=== PATIENT | female | born 1945 | race Caucasian/White ===

== ENCOUNTER 2016-08-09 14:53 | Outpatient (CLI) | payer MEDICARE, BC, OTHER | END 2016-08-09 14:54 | disposition home or self-care (01) | DX: M51.36 Other intervertebral disc degeneration, lumbar region (principal); M47.816 Spondylosis without myelopathy or radiculopathy, lumbar region; M48.54XD Collapsed vertebra, not elsewhere classified, thoracic region, subsequent encounter for fracture with routine healing; M51.34 Other intervertebral disc degeneration, thoracic region; M40.14 Other secondary kyphosis, thoracic region ==

== ENCOUNTER 2016-10-03 09:34 | Outpatient (CLI) | payer MEDICARE, BC, OTHER | END 2016-10-03 09:35 | disposition home or self-care (01) | DX: E78.5 Hyperlipidemia, unspecified (principal) ==

== ENCOUNTER 2017-02-10 13:33 | Emergency (ER) | payer MEDICARE, BC, OTHER ==
--- NOTE | 2017-02-10 13:48 | ED Physician Documentation ---
PD HPI UPPER EXT INJURY - Stated complaint Stated Complaint: R SHOULDER PX - Chief complaint Chief Complaint: Ext Problem - History obtained from History obtained from: Patient - History of Present Illness Location: Right, Shoulder (was opening a window that was firm to move, pulling it up from waist height, and felt onse tof pop and pain in right anterior shoulder. Pain with ROM of the shoulder. Does not feel pain with flexion of the elbow. Guarding motion of the shoulder. Has had some arthritis of the shoulder and pain with abduction and rotational movement at times in the past, not recent.) Where injury occurred: Home Timing - onset: Today Timing - duration: Hours Timing - details: Abrupt onset, Still present Improved by: Rest Worsened by: Moving Associated symptoms: Weakness (of arm for lifting it due to pain.). No: Numbness Contributing factors: Anticoagulated (on Plavix s/p heart stent few years ago). No: Prior ortho surgery Similar symptoms before: Has not had sx before Recently seen: Not recently seen Review of Systems GI: denies: Nausea, Vomiting Neurologic: denies: Focal weakness (arm hurts with rotational movement and abduction so less strong, but does not feel weak in focal areas.), Numbness PD PAST MEDICAL HISTORY - Past Medical History Cardiovascular: Hypertension, High cholesterol, Coronary artery disease, Pulmonary embolism, [place] Respiratory: Pneumonia GI: GERD - Past Surgical History Past Surgical History: No Cardiovascular: Coronary stent - Present Medications Home Medications: Ambulatory Orders Medication Instructions Recorded Confirmed Acyclovir 400 mg PO DAILY 01/11/13 02/10/17 Aspirin [Aspir 81] 81 mg PO DAILY 01/11/13 02/10/17 Atorvastatin Calcium [Lipitor] 40 mg PO DAILY 01/11/13 02/10/17 Calcium [Calcio [place]] 500 mg PO DAILY 01/11/13 02/10/17 Clopidogrel [Plavix] 75 mg PO ONCE 01/11/13 02/10/17 Diclofenac Sodium 75 mg PO DAILY 01/11/13 02/10/17 Felodipine [Felodipine ER] 10 mg PO DAILY 01/11/13 02/10/17 Fluticasone [Flonase] 1 puffs PHAN BID 01/11/13 02/10/17 Furosemide [Lasix] 80 mg PO DAILY 01/11/13 02/10/17 Hydrocortisone/Pramoxine 10 gm RC DAILY PRN 01/11/13 02/10/17 [Proctofoam-Hc 1%-1% Foam] Hydroxychloroquine [Plaquenil] 200 mg PO BID 01/11/13 02/10/17 Losartan [Cozaar] 50 mg PO DAILY 01/11/13 02/10/17 Metoprolol Tartrate [Lopressor] 25 mg PO BID 01/11/13 02/10/17 quiNINE [Qualaquin] 324 mg PO QPM PRN 01/11/13 02/10/17 Meclizine [Antivert] 25 mg PO Q6H PRN #20 tablet 02/23/14 02/10/17 Isosorbide Mononitrate [Isosorbide 30 mg PO DAILY 02/10/17 02/10/17 Mononitrate ER] Nitroglycerin 0.4 mg SL QID PRN 02/10/17 02/10/17 - Allergies Allergies/Adverse Reactions: Allergies Allergy/AdvReac Type Severity Reaction Status Date / Time ciprofloxacin [From Cipro] Allergy Unknown unknown Verified 02/10/17 13:40 ciprofloxacin HCl * Allergy Unknown unknown Verified 02/10/17 13:40 [From Cipro] Sulfa (Sulfonamide Allergy Unknown unknown Verified 02/10/17 13:40 Antibiotics) - Social History Does the pt smoke?: No Smoking Status: Never smoker Does the pt drink ETOH?: Yes - Immunizations Immunizations are current?: Yes PD ED PE NORMAL - Vitals Vital signs reviewed: Yes - General General: Alert and oriented X 3, No acute distress, Well developed/nourished, Other (guarding/splinting ROM of the shoulder to her side. ) - Neck Neck: Supple, no meningeal sign, No bony TTP - Cardiac Cardiac: RRR - Respiratory Respiratory: Clear bilaterally - Abdomen Abdomen: Soft, Non tender - Derm Derm: Normal color, Warm and dry, No rash - Extremities Extremities: No edema, Other (right shoulder with some tenderness anteriorly and near AC joint without stepoff. Clavicle not tender. No noted laxity of the shoulder with passive stress testing. Active ROM has pain but good strength with abduction, forward extension, and internal rotation. ) Results - Vitals Vitals: Oxygen O2 Source Room air - Rads (name of study) shoulder Radiology: Prelim report reviewed, EMP read contemporaneously (calcific changes of the right rotator cuff area. No fractures. AC in good approximation. CLavicle okay. ) PD MEDICAL DECISION MAKING - ED course Complexity details: reviewed results, considered differential (seems likely rotator cuff strain, has good movement with strength but hurts with some rotator cuff movements. Biceps does not feel torn and has good strength. AC area tender but normal appearance on xray and not particular mechanism for AC separation. So presume rotator cuff strain. The pop at onset could have been calcifications eleasing. ), d/w patient Departure - Departure Disposition: 01 Home, Self Care Clinical Impression: Right shoulder injury Qualifiers: Encounter type: initial encounter Qualified Code(s): S49.91XA - Unspecified injury of right shoulder and upper arm, initial encounter Rotator cuff strain Qualifiers: Encounter type: initial encounter Laterality: right Qualified Code(s): S46.011A - Strain of muscle(s) and tendon(s) of the rotator cuff of right shoulder, initial encounter Condition: Stable Record reviewed to determine appropriate education?: Yes Instructions: ED Torn Rotator Cuff Follow-Up: Brenda Brody MD [Primary Care Provider] - Vinny Hamlin MD [Provider Admit Priv/Credential] - Comments: I think you have either strained or partly torn some of the rotator cuff tendon. You do have a lot of calcium buildup in the rotator cuff which signifies prior inflammation of it. You do not want your shoulder to "freeze" so have gentle range of motion of it several times daily. Meanwhile he can guard the motion of the shoulder with a sling much of the time. Continue usual medications and add Tylenol if needed for pain 4 times a day. Follow-up with orthopedics in the next week, call for appointment. Discharge Date/Time: 02/10/17 15:04
[2017-02-10] MEDS ORDERED: ACETAMINOPHEN 325 MG TABLET PO STA (14:02)
[2017-02-10] MEDS ORDERED: ACETAMINOPHEN 325 MG TABLET PO ONE (14:12)
--- NOTE | 2017-02-10 14:29 | XRAY Preliminary Report ---
Exam: XR Shoulder 3 View RT IMPRESSION: 1. Extensive periarticular calcifications or capsular calcifications of the right shoulder. No acute fracture or dislocation. [facility] SITE ID: [id number]
--- NOTE | 2017-02-10 14:32 | XRAY Report ---
EXAM: RIGHT SHOULDER RADIOGRAPHY EXAM DATE: 02/10/2017 02:21 PM. CLINICAL HISTORY: Abrupt pop in shoulder lifting window. COMPARISON: None. TECHNIQUE: 3 views. FINDINGS: Bones: Normal. No fracture or bone lesion. Joints: There is joint space narrowing of the acromioclavicular joint. There are extensive periarticu lar calcifications around the glenohumeral joint. Soft tissues: Negative for right pneumothorax. IMPRESSION: 1. Extensive periarticular calcifications or capsular calcifications of the right shoulder. No acute fracture or dislocation. [facility] Referring Provider Line: [phone] SITE ID: [id number]
[2017-02-10 14:56] VITALS: BP 197/97
== END 2017-02-10 15:04 | disposition home or self-care (01) ==
LOC: ED 13:33
DX: S46.011A Strain of muscle(s) and tendon(s) of the rotator cuff of right shoulder, initial encounter (principal); X50.0XXA Overexertion from strenuous movement or load, initial encounter; Y92.018 Other place in single-family (private) house as the place of occurrence of the external cause; I10 Essential (primary) hypertension; E78.00 Pure hypercholesterolemia, unspecified; I25.10 Atherosclerotic heart disease of native coronary artery without angina pectoris; I25.2 Old myocardial infarction; K21.9 Gastro-esophageal reflux disease without esophagitis; Z86.711 Personal history of pulmonary embolism; Z79.82 Long term (current) use of aspirin
CPT/HCPCS: 73030; 99283; A9270

== ENCOUNTER 2017-04-07 19:56 | Outpatient (CLI) | payer MEDICARE, BC, OTHER | END 2017-04-07 19:57 | disposition EMS.NT | LOC: EMS 19:56 | PROVIDERS: ATTEND Surgery | DX: R11.2 Nausea with vomiting, unspecified (principal) ==

== ENCOUNTER 2017-07-29 08:00 | Outpatient (CLI) | payer MEDICARE, BC, OTHER ==
[2017-08-02 19:41] LABS: ANA SCREEN POSITIVE (NEGATIVE)
== END 2017-07-29 08:01 | disposition home or self-care (01) ==
LOC: LAB.N 08:00
PROVIDERS: ATTEND Physician Assistant
DX: L20.84 Intrinsic (allergic) eczema (principal); L98.499 Non-pressure chronic ulcer of skin of other sites with unspecified severity; L81.4 Other melanin hyperpigmentation; Z71.89 Other specified counseling
CPT/HCPCS: 36415; 86038

== ENCOUNTER 2017-12-02 14:03 | Outpatient (CLI) | payer MEDICARE, BC, OTHER ==
[2017-12-02 14:40] LABS: BASOPHILS % (AUTO) 0.5 %; EOSINOPHILS # (AUTO) 0.4 10^3/uL (0.0-0.7); EOSINOPHILS % (AUTO) 6.5 %; HGB - HEMOGLOBIN 13.2 g/dL (12.0-16.0); LYMPHOCYTES # (AUTO) 1.3 10^3/uL (1.5-3.5); LYMPHOCYTES % (AUTO) 22.3 %; MEAN CORPUSCULAR HEMOGLOBIN 32.2 pg (27.0-31.0); MEAN CORPUSCULAR HGB CONC 33.7 g/dL (32.0-36.0); MEAN CORPUSCULAR VOLUME 95.6 fL (81.0-99.0); MEAN PLATELET VOLUME 7.6 fL (7.9-10.8); MONOCYTES # (AUTO) 0.5 10^3/uL (0.0-1.0); NEUTROPHILS # (AUTO) 3.7 10^3/uL (1.5-6.6); NEUTROPHILS % (AUTO) 61.7 %; PLT - PLATELET COUNT 259 10^3/uL (130-450); RED CELL DISTRIBUTION WIDTH 14.5 % (12.0-15.0)
[2017-12-02 14:41] LABS: BILIRUBIN,URINE NEGATIVE (NEGATIVE); GLUCOSE, URINE (UA) NEGATIVE (NEGATIVE); KETONES,URINE (UA) NEGATIVE (NEGATIVE); LEUKOCYTE ESTERASE, URINE MODERATE (NEGATIVE); NITRITE,URINE NEGATIVE (NEGATIVE); OCCULT BLOOD,URINE NEGATIVE (NEGATIVE); PROTEIN,URINE NEGATIVE (NEGATIVE); UROBILINOGEN,URINE 0.2 (NORMAL) E.U./dL (NORMAL)
[2017-12-02 14:47] LABS: CLARITY,URINE HAZY (CLEAR)
[2017-12-02 14:49] LABS: BACTERIA,URINE Moderate /HPF (None Seen); RBC,URINE 0-5 /HPF (0-5); SQUAMOUS EPITHELIAL CELL,UR RARE Squamous (<= Few); WBC CLUMPS,URINE PRESENT
[2017-12-02 15:01] LABS: BUN - BLOOD UREA NITROGEN 14 mg/dL (6-20); CALCIUM 9.6 mg/dL (8.5-10.3); CARBON DIOXIDE - CO2 27 mmol/L (21-32); CHLORIDE 98 mmol/L (101-111); CHOLESTEROL 148 mg/dL; CK- CREATINE KINASE 60 IU/L (22-269); CREATININE 0.9 mg/dL (0.4-1.0); GFR - MDRD 61 (>89); GLUCOSE 95 mg/dL (70-100); HDL CHOLESTEROL 50 mg/dL; LDL CHOLESTEROL,CALCULATED 74 mg/dL; LDL/HDL RATIO 1.5 (<4.4); SODIUM 133 mmol/L (135-145); VLDL CHOLESTEROL 24 mg/dL
== END 2017-12-02 14:04 | disposition home or self-care (01) ==
LOC: LAB 14:03
PROVIDERS: ATTEND Internal Medicine
DX: H91.90 Unspecified hearing loss, unspecified ear (principal); Z79.899 Other long term (current) drug therapy; M19.90 Unspecified osteoarthritis, unspecified site; M33.20 Polymyositis, organ involvement unspecified; D64.9 Anemia, unspecified; M85.80 Other specified disorders of bone density and structure, unspecified site
CPT/HCPCS: 36415; 80048; 80061; 81001; 81003; 82550; 83721; 84443; 85025; 87077; 87086; 87181

== ENCOUNTER 2019-03-10 12:10 | Outpatient (CLI) | payer MEDICARE, BC, OTHER ==
--- NOTE | 2019-03-10 14:05 | Mammography Report ---
Reason: SCREENING MAMMO Procedure Date: 03/10/2019 Accession Number: [id number] / [id number] Procedure: MGN - Screening Mammo Dig Bilat CPT Code: FULL RESULT: EXAM: Screening Mammo Dig Bilat DATE: 03/10/2019 12:49 PM CLINICAL HISTORY: Routine screening TECHNIQUE: (B) - Bilateral CC and MLO views were obtained. COMPARISON: 12/19/2015, 08/14/2013, 06/26/2012 and 04/03/2011 PARENCHYMAL PATTERN: (A) - The breasts demonstrate scattered fibroglandular densities bilaterally. FINDINGS: No significant interval change. There are no suspicious masses, calcifications, or areas of distortion. IMPRESSION: Negative examination. BI-RADS category 1. RECOMMENDATION: (ANNUAL) - Recommend routine annual screening mammography. BI-RADS CATEGORY: (1) - Negative. STANDARD QUALIFYING STATEMENTS: 1. This examination was not reviewed with the aid of Computer-Aided Detection (CAD). 2. A negative or benign imaging report should not preclude biopsy if clinically suspicious findings are present. 3. Dense breasts may obscure an underlying neoplasm. 4. This examination was reviewed without the aid of 3D breast imaging (tomosynthesis).
== END 2019-03-10 12:11 | disposition home or self-care (01) ==
LOC: DI.N 12:10
PROVIDERS: ATTEND Internal Medicine
DX: Z12.31 Encounter for screening mammogram for malignant neoplasm of breast (principal)
CPT/HCPCS: 77067

== ENCOUNTER 2019-06-10 13:10 | Outpatient (CLI) | payer MEDICARE, BC, OTHER ==
[~2019-06-10 13:10] MED LIST: ALBUTEROL NEB 2.5 MG/3 ML INH SCH
== END 2019-06-10 13:11 | disposition home or self-care (01) ==
LOC: RT 13:10
PROVIDERS: ATTEND Internal Medicine
DX: R06.09 Other forms of dyspnea (principal)
CPT/HCPCS: 94060; 94664

== ENCOUNTER → 2020-07-02 | Outpatient (CLI) | payer MEDICARE, BC, OTHER | END | disposition short-term general hospital (02) | LOC: EMS 23:57 | PROVIDERS: ATTEND Surgery | DX: R07.9 Chest pain, unspecified (principal) | CPT/HCPCS: A0425; A0427 ==

== ENCOUNTER 2020-08-15 10:16 | Outpatient (CLI) | payer MEDICARE, BC, OTHER | END 2020-08-15 10:17 | disposition EMS.NT | LOC: EMS 10:16 | DX: T18.0XXA Foreign body in mouth, initial encounter (principal); X58.XXXA Exposure to other specified factors, initial encounter ==

== ENCOUNTER 2020-12-13 17:15 | Outpatient (CLI) | payer MEDICARE, BC, OTHER ==
--- NOTE | 2020-12-14 08:42 | XRAY Report ---
PROCEDURE: Ankle 3 View LT INDICATIONS: L ANKLE PX TECHNIQUE: 3 views of the ankle were acquired. COMPARISON: None of the left ankle. FINDINGS: Bones: No definite fractures or dislocations, but there is mild irregularity at the inferior tip of the medial malleolus. No overlying definite soft tissue swelling is found, however. This may reflect degenerative change or old trauma but definite new trauma is not suspected.. Ankle mortise is normal ly aligned. No suspicious bony lesions. Soft tissues: No tibiotalar joint effusion. Achilles tendon appears normal. IMPRESSION: Please correlate for focal point tenderness at the medial malleolus tip. There is mild i rregularity in that area but etiology is uncertain and by appearance this is considered more likely c hronic than acute. However, in the setting of trauma clinical correlation and consideration of delaye d plain films may be warranted. Reviewed by: Morris Ge MD on 12/14/2020 8:41 AM PDT Approved by: Morris Ge MD on 12/14/2020 8:41 AM PDT Station ID: [id number]
== END 2020-12-13 23:59 | disposition home or self-care (01) ==
LOC: DI.N 17:15
PROVIDERS: ATTEND Family Medicine
DX: M25.572 Pain in left ankle and joints of left foot (principal)

== ENCOUNTER 2020-12-30 08:00 | Outpatient (CLI) | payer MEDICARE, BC, OTHER ==
[2020-12-30 17:56] LABS: BASOPHILS % (AUTO) 0.7 %; EOSINOPHILS # (AUTO) 0.2 10^3/uL (0.0-0.7); EOSINOPHILS % (AUTO) 3.4 %; HCT - HEMATOCRIT 30.4 % (37.0-47.0); HGB - HEMOGLOBIN 9.8 g/dL (12.0-16.0); LYMPHOCYTES # (AUTO) 0.9 10^3/uL (1.5-3.5); LYMPHOCYTES % (AUTO) 19.5 %; MEAN CORPUSCULAR HEMOGLOBIN 32.9 pg (27.0-31.0); MEAN CORPUSCULAR HGB CONC 32.2 g/dL (32.0-36.0); MEAN PLATELET VOLUME 9.8 fL (7.9-10.8); MONOCYTES # (AUTO) 0.5 10^3/uL (0.0-1.0); MONOCYTES % (AUTO) 10.1 %; NEUTROPHILS % (AUTO) 66.1 %; PLT - PLATELET COUNT 236 10^3/uL (130-450); RED BLOOD COUNT 2.98 10^6/uL (4.20-5.40); RED CELL DISTRIBUTION WIDTH 13.5 % (12.0-15.0); WHITE BLOOD COUNT 4.5 x10^3/uL (4.8-10.8)
[2020-12-30 18:07] LABS: ALBUMIN 3.8 g/dL (3.2-5.5); ALBUMIN/GLOBULIN RATIO 1.2 (1.0-2.2); BILIRUBIN,TOTAL 0.6 mg/dL (0.2-1.0); CALCIUM 9.3 mg/dL (8.5-10.3); CREATININE 1.2 mg/dL (0.4-1.0)
[2020-12-30 18:27] LABS: BILIRUBIN,URINE NEGATIVE (NEGATIVE); GLUCOSE, URINE (UA) NEGATIVE (NEGATIVE); KETONES,URINE (UA) NEGATIVE (NEGATIVE); LEUKOCYTE ESTERASE, URINE NEGATIVE (NEGATIVE); NITRITE,URINE NEGATIVE (NEGATIVE); OCCULT BLOOD,URINE NEGATIVE (NEGATIVE); PH,URINE 5.5 PH (5.0-7.5); PROTEIN,URINE NEGATIVE (NEGATIVE); UROBILINOGEN,URINE 0.2 (NORMAL) E.U./dL (NORMAL)
[2020-12-30 18:35] LABS: CLARITY,URINE CLEAR (CLEAR)
[2020-12-30 19:07] LABS: BACTERIA,URINE Moderate /HPF (None Seen); RBC,URINE 0-5 /HPF (0-5); SQUAMOUS EPITHELIAL CELL,UR FEW Squamous (<= Few)
== END 2020-12-30 23:59 | disposition home or self-care (01) ==
LOC: LAB.N 08:00
PROVIDERS: ATTEND Physician Assistant Medical
DX: R69 Illness, unspecified (principal)
CPT/HCPCS: 36415; 80053; 81001; 85025; 87077; 87086; 87181

== ENCOUNTER 2021-06-09 13:37 | Outpatient (CLI) | payer MEDICARE, BC, OTHER ==
--- NOTE | 2021-06-09 15:06 | XRAY Report ---
PROCEDURE: Hip w/Pelvis 2-3V RT INDICATIONS: RIGHT HIP PAIN S/P FALL TECHNIQUE: AP pelvis with lateral view(s) of the right hip(s). COMPARISON: None. FINDINGS: Bones: No fractures or dislocations. Moderate right hip joint osteoarthritic changes are seen. No ev idence of avascular necrosis of femoral head. Pelvic ring appears intact. No suspicious bony lesions . Soft tissues: The visualized bowel gas pattern is normal. No suspicious soft tissue calcifications. Possible tubal ligation clips are seen in bilateral adnexa. IMPRESSION: Moderate right hip joint osteoarthritis. No acute fracture or dislocation. No evidence of avascular necrosis. Reviewed by: Kirill Paulino MD on 06/09/2021 3:04 PM PST Approved by: Kirill Paulino MD on 06/09/2021 3:04 PM PST Station ID: [id number]
== END 2021-06-09 13:38 | disposition home or self-care (01) ==
LOC: DI.N 13:37
PROVIDERS: ATTEND Physician Assistant
DX: M25.551 Pain in right hip (principal); M16.11 Unilateral primary osteoarthritis, right hip

== ENCOUNTER 2021-07-11 14:08 | Outpatient (CLI) | payer MEDICARE, BC, OTHER ==
--- NOTE | 2021-07-11 16:25 | XRAY Report ---
PROCEDURE: Chest 2 View X-Ray INDICATIONS: R RIB PX TECHNIQUE: 2 view(s) of the chest. COMPARISON: None. FINDINGS: Surgical changes and devices: None. Lungs and pleura: No pleural effusions or pneumothorax. Lungs are clear. Mediastinum: Mediastinal contours are normal. Heart size is normal. Bones and chest wall: No suspicious bony abnormalities. Soft tissues appear unremarkable. IMPRESSION: No acute cardiopulmonary process demonstrated radiographically. Please note that anterio r ribs are poorly visualized utilizing chest radiography. Reviewed by: Dhiraj Arellano MD on 07/11/2021 4:23 PM PST Approved by: Dhiraj Arellano MD on 07/11/2021 4:23 PM PST Station ID: [id number]
== END 2021-07-11 14:09 | disposition home or self-care (01) ==
LOC: DI.N 14:08
PROVIDERS: ATTEND Physician Assistant
DX: R07.81 Pleurodynia (principal); R07.1 Chest pain on breathing

== ENCOUNTER 2021-07-21 08:00 | Outpatient (CLI) | payer MEDICARE, BC, OTHER ==
[2021-07-21 18:35] LABS: HCT - HEMATOCRIT 31.9 % (37.0-47.0); HGB - HEMOGLOBIN 10.7 g/dL (12.0-16.0); MEAN CORPUSCULAR HGB CONC 33.5 g/dL (32.0-36.0); MEAN CORPUSCULAR VOLUME 98.5 fL (81.0-99.0); MEAN PLATELET VOLUME 9.5 fL (7.9-10.8); RED BLOOD COUNT 3.24 10^6/uL (4.20-5.40); RED CELL DISTRIBUTION WIDTH 13.1 % (12.0-15.0); WHITE BLOOD COUNT 3.3 x10^3/uL (4.8-10.8)
[2021-07-21 18:39] LABS: ALBUMIN 4.2 g/dL (3.2-5.5); ALBUMIN/GLOBULIN RATIO 1.4 (1.0-2.2); BILIRUBIN,TOTAL 0.5 mg/dL (0.2-1.0); CALCIUM 9.5 mg/dL (8.5-10.3); CREATININE 0.8 mg/dL (0.4-1.0); POTASSIUM 4.7 mmol/L (3.5-5.0); TOTAL PROTEIN 7.2 g/dL (6.7-8.2)
[2021-07-21 18:47] LABS: CREATINE KINASE MB 2.3 ng/mL (0.6-6.3)
[2021-07-21 18:49] LABS: TROPONIN I HIGH SENSITIVITY 13.1 ng/L (2.3-14.8)
== END 2021-07-21 23:59 | disposition home or self-care (01) ==
LOC: LAB.N 08:00
PROVIDERS: ATTEND Nurse Practitioner
DX: R06.02 Shortness of breath (principal)
CPT/HCPCS: 36415; 80053; 82553; 83880; 84484; 85027; 85379

== ENCOUNTER 2021-07-21 15:22 | Outpatient (CLI) | payer MEDICARE, BC, OTHER ==
--- NOTE | 2021-07-21 16:29 | XRAY Report ---
PROCEDURE: Chest 2 View X-Ray INDICATIONS: Shortness of breath TECHNIQUE: 2 view(s) of the chest. COMPARISON: 07/11/2021 FINDINGS: Surgical changes and devices: None. Lungs and pleura: No pleural effusions or pneumothorax. Lungs are clear. Mediastinum: Mediastinal contours are normal. Heart size is normal. Bones and chest wall: No suspicious bony abnormalities. Soft tissues appear unremarkable. IMPRESSION: No acute cardiopulmonary process demonstrated radiographically. Reviewed by: Dhiraj Arellano MD on 07/21/2021 4:27 PM PST Approved by: Dhiraj Arellano MD on 07/21/2021 4:27 PM PST Station ID: [id number]
== END 2021-07-21 23:59 | disposition home or self-care (01) ==
LOC: DI.N 15:22
PROVIDERS: ATTEND Nurse Practitioner
DX: R06.02 Shortness of breath (principal)
CPT/HCPCS: 36415; 80053; 82553; 83880; 84484; 85027; 85379

== ENCOUNTER 2022-06-26 15:41 | Outpatient (CLI) | payer MEDICARE, BC, OTHER | END 2022-06-26 15:42 | disposition critical access hospital (66) | LOC: EMS 15:41 | DX: R55 Syncope and collapse (principal) | CPT/HCPCS: A0425; A0429 ==

== ENCOUNTER 2022-06-26 16:03 | Emergency (ER) | payer MEDICARE, BC, OTHER ==
[2022-06-26 16:50] LABS: BASOPHILS % (AUTO) 0.2 %; EOSINOPHILS # (AUTO) 0.1 10^3/uL (0.0-0.7); EOSINOPHILS % (AUTO) 1.3 %; HCT - HEMATOCRIT 25.9 % (37.0-47.0); HGB - HEMOGLOBIN 8.6 g/dL (12.0-16.0); LYMPHOCYTES # (AUTO) 0.7 10^3/uL (1.5-3.5); LYMPHOCYTES % (AUTO) 13.2 %; MEAN CORPUSCULAR HEMOGLOBIN 34.7 pg (27.0-31.0); MEAN CORPUSCULAR HGB CONC 33.2 g/dL (32.0-36.0); MEAN CORPUSCULAR VOLUME 104.4 fL (81.0-99.0); MEAN PLATELET VOLUME 8.5 fL (7.9-10.8); MONOCYTES # (AUTO) 0.6 10^3/uL (0.0-1.0); MONOCYTES % (AUTO) 10.5 %; NEUTROPHILS # (AUTO) 4.1 10^3/uL (1.5-6.6); NEUTROPHILS % (AUTO) 74.4 %; PLT - PLATELET COUNT 196 10^3/uL (130-450); RED BLOOD COUNT 2.48 10^6/uL (4.20-5.40); RED CELL DISTRIBUTION WIDTH 13.4 % (12.0-15.0); WHITE BLOOD COUNT 5.5 x10^3/uL (4.8-10.8)
--- NOTE | 2022-06-26 16:59 | XRAY Report ---
PROCEDURE: Chest 1 View X-Ray INDICATIONS: syncope TECHNIQUE: One view of the chest was acquired. COMPARISON: 07/21/2021. FINDINGS: Surgical changes and devices: None. Lungs and pleura: No pleural effusions or pneumothorax. Lungs are clear. Mediastinum: Mediastinal contours appear normal. Heart is mildly enlarged. Bones and chest wall: No suspicious bony lesions. Overlying soft tissues appear unremarkable. IMPRESSION: No acute cardiopulmonary disease process.. Reviewed by: Elham Velasquez MD, PhD on 06/26/2022 4:58 PM PST Approved by: Elham Velasquez MD, PhD on 06/26/2022 4:58 PM PST Station ID: [id number]
[2022-06-26 17:07] LABS: ALBUMIN 3.8 g/dL (3.2-5.5); ALBUMIN/GLOBULIN RATIO 1.4 (1.0-2.2); BILIRUBIN,TOTAL 0.7 mg/dL (0.2-1.0); CALCIUM 8.7 mg/dL (8.5-10.3); CREATININE 1.8 mg/dL (0.4-1.0); POTASSIUM 4.4 mmol/L (3.5-5.0); TOTAL PROTEIN 6.5 g/dL (6.7-8.2)
[2022-06-26] MEDS ORDERED: SODIUM CHLORIDE 0.9% 1,000 ML IV STA (17:18)
--- NOTE | 2022-06-26 17:24 | ED Physician Documentation ---
PD HPI SYNCOPE - Stated complaint Stated Complaint: SYNCOPAL EPISODE - Chief complaint Chief Complaint: Neuro - History obtained from History obtained from: Patient, EMS - History of Present Illness Witnessed: Unwitnessed Timing - onset: Today Injury occurred: Fell. No: Head injury, Neck injury, Bit tongue Pain level max: 0 Pain level now: 0 - Additional information Additional information: Patient is a 77-year-old female who presents to the emergency department stating that she was at home today using the restroom. When she stood up she felt lightheaded, dizzy and fell. She thinks that she may have had a syncopal episode. She is also concerned that she may have a UTI. She states that her normal daily meals are chicken noodle soup for dinner, 3 yogurts throughout the day and oatmeal in the morning. She denies any injuries. No headache. No neck or back pain. No numbness or tingling. No loss of bowel or bladder control. No chest pain. No shortness of breath. When EMS arrived, she was orthostatic. They started IV fluids and the patient is feeling better. No history of arrhythmias. Review of Systems Constitutional: denies: Fever, Chills Nose: denies: Rhinorrhea / runny nose, Congestion Throat: denies: Sore throat Cardiac: denies: Chest pain / pressure, Palpitations Respiratory: denies: Dyspnea, Cough, Wheezing GI: denies: Abdominal Pain, Nausea, Vomiting, Diarrhea : reports: Dysuria, Frequency, Hesitancy Skin: denies: Rash Musculoskeletal: denies: Neck pain, Back pain Neurologic: denies: Headache PD PAST MEDICAL HISTORY - Past Medical History Past Medical History: Yes Cardiovascular: Hypertension, High cholesterol, Coronary artery disease, Pulmonary embolism, [place] Respiratory: Pneumonia Neuro: None Endocrine/Autoimmune: None GI: GERD HEENT: None Derm: None - Past Surgical History Past Surgical History: No Cardiovascular: Coronary stent - Present Medications Home Medications: Ambulatory Orders Medication Instructions Recorded Confirmed Acyclovir 400 mg PO DAILY 01/11/13 06/26/22 Aspirin [Aspir 81] 81 mg PO DAILY 01/11/13 06/26/22 Calcium [Calcio [place]] 500 mg PO DAILY 01/11/13 06/26/22 Fluticasone [Flonase] 1 puffs PHAN BID 01/11/13 06/26/22 Hydroxychloroquine [Plaquenil] 200 mg PO BID 01/11/13 06/26/22 Nitroglycerin 0.4 mg SL QID PRN 02/10/17 06/26/22 Albuterol Sulf [Ventolin Hfa 1 - 2 puffs INH Q4HR PRN 06/26/22 06/26/22 Inhaler] Alendronate Sodium 70 mg PO Q7D 06/26/22 06/26/22 Carvedilol [Coreg] 25 mg PO BID 06/26/22 06/26/22 Cevimeline HCl [Evoxac] 30 mg PO DAILY 06/26/22 06/26/22 Cholecalciferol (Vitamin D3) 50 mcg PO DAILY 06/26/22 06/26/22 [Vitamin D3] Clotrimazole Jacqui [Clotrimazole] 10 mg MM 5XD 06/26/22 06/26/22 Empagliflozin [Jardiance] 10 mg ORAL DAILY 06/26/22 06/26/22 Gabapentin [Neurontin] 100 mg PO TID 06/26/22 06/26/22 Lisinopril [Zestril] 40 mg PO DAILY 06/26/22 06/26/22 Magnesium Oxide [Magnesium] 500 mg PO DAILY 06/26/22 06/26/22 Multivitamin [Theragran] 1 each PO DAILY 06/26/22 06/26/22 Omeprazole Magnesium 20 mg PO DAILY 06/26/22 06/26/22 Spironolactone [Aldactone] 25 mg PO DAILY 06/26/22 06/26/22 cephALEXin [Keflex] 500 mg PO Q6H #20 cap 06/26/22 mycophenolate mofetiL 1,000 mg PO BID 06/26/22 06/26/22 [Mycophenolate Mofetil] - Allergies Allergies/Adverse Reactions: Allergies Allergy/AdvReac Type Severity Reaction Status Date / Time ciprofloxacin [From Cipro] Allergy Unknown unknown Verified 06/26/22 16:15 ciprofloxacin HCl * Allergy Unknown unknown Verified 06/26/22 16:15 [From Cipro] Sulfa (Sulfonamide Allergy Unknown unknown Verified 06/26/22 16:15 Antibiotics) - Social History Does the pt smoke?: No Smoking Status: Never smoker Does the pt drink ETOH?: Yes - Immunizations Immunizations are current?: Yes PD ED PE NORMAL - Vitals Vital signs reviewed: Yes - General General: Alert and oriented X 3, No acute distress - HEENT HEENT: Atraumatic, PERRL, Moist mucous membranes, Pharynx benign - Neck Neck: Supple, no meningeal sign, No bony TTP - Cardiac Cardiac: RRR, Strong equal pulses - Respiratory Respiratory: No respiratory distress, Clear bilaterally - Abdomen Abdomen: Soft, Non tender, Non distended - Back Back: No CVA TTP, No spinal TTP - Derm Derm: Warm and dry - Extremities Extremities: No edema, No calf tenderness / cord - Neuro Neuro: Alert and oriented X 3 - Psych Psych: Normal mood, Normal affect Results - Vitals Vitals: Vital Signs - 24 hr 06/26/22 06/26/22 06/26/22 16:15 16:58 17:24 Temperature 35.9 C L Heart Rate 68 69 67 Heart Rate [ Sitting] Heart Rate [ Standing] Heart Rate [ Supine] Respiratory 18 14 14 Rate Blood Pressure 108/87 H 114/70 126/71 Blood Pressure [Sitting] Blood Pressure [Standing] Blood Pressure [Supine] O2 Saturation 100 100 100 06/26/22 06/26/22 06/26/22 17:26 18:14 19:28 Temperature Heart Rate 67 71 Heart Rate [ 66 Sitting] Heart Rate [ 71 Standing] Heart Rate [ 65 Supine] Respiratory 14 16 Rate Blood Pressure 126/67 162/58 H Blood Pressure 119/67 [Sitting] Blood Pressure 92/64 [Standing] Blood Pressure 109/66 [Supine] O2 Saturation 100 98 06/26/22 06/26/22 19:58 19:59 Temperature 36.8 C Heart Rate 79 Heart Rate [ Sitting] Heart Rate [ Standing] Heart Rate [ Supine] Respiratory 17 Rate Blood Pressure 123/63 Blood Pressure [Sitting] Blood Pressure [Standing] Blood Pressure [Supine] O2 Saturation 98 Oxygen O2 Source Room air - EKG (time done) 1606 Rate: Rate (enter#) (68) Rhythm: NSR [place]: LAD Intervals: Wide QRS Ischemia: Non specific changes - Labs Labs: Laboratory Tests 06/26/22 06/26/22 06/26/22 16:44 16:44 16:44 WBC 5.5 RBC 2.48 L Hgb 8.6 L Hct 25.9 L MCV 104.4 H MCH 34.7 H MCHC 33.2 RDW 13.4 Plt Count 196 MPV 8.5 Neut # (Auto) 4.1 Lymph # (Auto) 0.7 L Bennett # (Auto) 0.6 Eos # (Auto) 0.1 Baso # (Auto) 0.0 Absolute Nucleated RBC 0.00 Nucleated RBC % 0.0 Sodium 127 L Potassium 4.4 Chloride 104 Carbon Dioxide 14 L Anion Gap 9.0 BUN 27 H Creatinine 1.8 H Estimated GFR (MDRD) 27 L Glucose 100 Calcium 8.7 Total Bilirubin 0.7 AST 14 ALT 11 Alkaline Phosphatase 44 Troponin I High Sens 20.5 H* Total Protein 6.5 L Albumin 3.8 Globulin 2.7 Albumin/Globulin Ratio 1.4 Lipase 71 H Urine Color Urine Clarity Urine pH Ur Specific [place] Urine Protein Urine Glucose (UA) Urine Ketones Urine Occult Blood Urine Nitrite Urine Bilirubin Urine Urobilinogen Ur Leukocyte Esterase Urine RBC Urine WBC Ur Squamous Epith Cells Urine Bacteria Ur Microscopic Review Urine Culture Comments 06/26/22 18:56 WBC RBC Hgb Hct MCV MCH MCHC RDW Plt Count MPV Neut # (Auto) Lymph # (Auto) Bennett # (Auto) Eos # (Auto) Baso # (Auto) Absolute Nucleated RBC Nucleated RBC % Sodium Potassium Chloride Carbon Dioxide Anion Gap BUN Creatinine Estimated GFR (MDRD) Glucose Calcium Total Bilirubin AST ALT Alkaline Phosphatase Troponin I High Sens Total Protein Albumin Globulin Albumin/Globulin Ratio Lipase Urine Color YELLOW Urine Clarity CLOUDY Urine pH 6.0 Ur Specific [place] >=1.030 H Urine Protein TRACE Urine Glucose (UA) NEGATIVE Urine Ketones NEGATIVE Urine Occult Blood SMALL H Urine Nitrite NEGATIVE Urine Bilirubin NEGATIVE Urine Urobilinogen 0.2 (NORMAL) Ur Leukocyte Esterase SMALL H Urine RBC 6-10 H Urine WBC >25 H Ur Squamous Epith Cells RARE Squamous Urine Bacteria Many H Ur Microscopic Review INDICATED Urine Culture Comments INDICATED - Rads (name of study) cxr Radiology: Final report received, See rad report (No acute cardiopulmonary disease process.. ) PD Medical Decision Making - ED course Complexity details: reviewed results, re-evaluated patient, considered differential (No ST elevation ID, no aortic dissection, no PE, no tension pneumothorax, no aortic aneurysm), d/w patient ED course: Patient is a 77-year-old female who presents to the emergency department with what appears to be a vasovagal syncope after using the toilet today. No chest pain. No shortness of breath. No arrhythmia. Feels much better after IV fluids. Eating and drinking without difficulty. No acute findings on EKG, or x-ray. Her CBC was reviewed, has an anemia with a hemoglobin of 8.6 and hematocrit of 25.9. This is lower than previous but does not require transfusion. Denies any blood in the stool. She will follow-up with her doctor for further investigation of this. She also has not had a creatinine of 1.8 which is elevated from her baseline, mildly elevated BUN at 27 and mild hyponatremia 127. Her CO2 is also low at 14. Expect that this will improve with the IV fluid she received tonight. Her high sensitive troponin is minimally elevated but she does not have any symptoms of acute coronary syndrome. No chest pain. No shortness of breath. She does have a UTI. We will treat her for this. Given Rocephin here IV. Patient will follow up with her doctor for further care. Patient counseled regarding signs and symptoms for wh ich I believe and urgent re-evaluation would be necessary. Patient with good understanding of and agreement to plan and is comfortable going home at this time This document was made in part using voice recognition software. While efforts are made to proofread this document, sound alike and grammatical errors may occur. Departure - Departure Disposition: 01 Home, Self Care Clinical Impression: Vasovagal syncope, Dehydration, Hyponatremia UTI (urinary tract infection) Qualifiers: Urinary tract infection type: acute cystitis Hematuria presence: without hematuria Qualified Code(s): N30.00 - Acute cystitis without hematuria Anemia Qualifiers: Anemia type: unspecified type Qualified Code(s): D64.9 - Anemia, unspecified Condition: Good Instructions: ED Dehydration, ED Syncope Vasovagal, ED UTI Cystitis Female Follow-Up: your,doctor in 3 days [Other] EDEN GARCIAS PA [Physician No Access] - Prescriptions: cephALEXin [Keflex] 500 mg PO Q6H #20 cap Comments: Make sure you are drinking plenty of fluids at home. Take all antibiotics until gone. Return if you worsen. Your prescriptions were sent to [facility] in [place]. Please start the antibiotic tomorrow. You were given the first dose of the antibiotic tonight through your IV. You also have anemia and this should be further evaluated by your doctor. Your sodium levels were low, this is likely related to dehydration. Please make sure you are eating and drinking enough food and water at home. Discharge Date/Time: 06/26/22 20:27
[2022-06-26 19:12] LABS: BILIRUBIN,URINE NEGATIVE (NEGATIVE); GLUCOSE, URINE (UA) NEGATIVE (NEGATIVE); KETONES,URINE (UA) NEGATIVE (NEGATIVE); LEUKOCYTE ESTERASE, URINE SMALL (NEGATIVE); NITRITE,URINE NEGATIVE (NEGATIVE); OCCULT BLOOD,URINE SMALL (NEGATIVE); PROTEIN,URINE TRACE mg/dL (NEGATIVE); UROBILINOGEN,URINE 0.2 (NORMAL) E.U./dL (NORMAL)
[2022-06-26 19:14] LABS: CLARITY,URINE CLOUDY (CLEAR)
[2022-06-26 19:29] LABS: BACTERIA,URINE Many /HPF (None Seen); SQUAMOUS EPITHELIAL CELL,UR RARE Squamous (<= Few); WBC,URINE >25 /HPF (0-5)
[2022-06-26 19:58] VITALS: BP 123/63
== END 2022-06-26 20:27 | disposition home or self-care (01) ==
LOC: EDUNIT# → ED 16:03
DX: R55 Syncope and collapse (principal); E86.0 Dehydration; E87.1 Hypo-osmolality and hyponatremia; N30.00 Acute cystitis without hematuria; I10 Essential (primary) hypertension
CPT/HCPCS: 36415; 80053; 81001; 81003; 83690; 84484; 85025; 87086; 87181; 93005; 96360; 99284

== ENCOUNTER 2022-07-24 11:55 | Outpatient (CLI) | payer MEDICARE, BC, OTHER | END 2022-07-24 11:56 | disposition short-term general hospital (02) | LOC: EMS 11:55 | DX: R07.9 Chest pain, unspecified (principal); R61 Generalized hyperhidrosis; R06.02 Shortness of breath; R00.0 Tachycardia, unspecified; R55 Syncope and collapse | CPT/HCPCS: A0425; A0427 ==